=== PATIENT | male | born 1985 | race Caucasian/White ===

== ENCOUNTER 2017-04-05 13:07 | Emergency (ER) | payer SELFPAY ==
[~2017-04-05] VITALS: Wt 63.0 kg
[2017-04-05] MEDS ORDERED: AMOX1TAB10 PO (14:38)
[2017-04-05] MEDS ORDERED: HYDR-906 PO (14:38)
[2017-04-05] MEDS ORDERED: IBUP-1542 PO (14:38)
--- NOTE | 2017-04-05 14:48 | ERD ---
ER Documentation Chief Complaint Date/Time DATE: 04/05/17 TIME: 14:41 Chief Complaint RIGHT SIDE FACIAL SWELLING FOR 3 DAYS. NO TRAUMA. NO FEVERS HPI Patient is a 31-year-old male who presents to the emergency department for right -sided facial pain and swelling 3 days. Patient states he has difficulty with opening his mouth secondary to the pain. Patient denies any fevers or chills. Patient denies any trauma. Patient states approximately 6 weeks ago a part of his right lower molar metal filling came out. Patient states that the affected area is tender to touch. No active bleeding. Patient states he recently just moved here from [place] so he has not seen a dentist yet. Patient denies any nausea, vomiting, throat pain, ear pain, cough, chest pain or shortness of breath or loss consciousness. Patient denies taking any medication for his symptoms. ROS All systems reviewed and are negative except as per history of present illness. Medications Home Meds Active Scripts Hydrocodone/Acetaminophen ([place] 5-325 Tablet) 1 Each Tablet, 1 TAB PO Q6H Y for PAIN, #7 TAB Prov:DOLORES CHAPIN PA-C 04/05/17 Ibuprofen* (Motrin*) 600 Mg Tab, 600 MG PO Q6, #30 TAB Prov:DOLORES CHAPIN PA-C 04/05/17 Amoxicillin/Potassium Clav (Amox-Clav 875-125 mg Tablet) 875-125 mg Tab, 1 TAB PO BID for 10 Days, #20 TAB Prov:DOLORES CHAPIN PA-C 04/05/17 PMhx/Soc History of Surgery: No Anesthesia Reaction: No Hx Neurological Disorder: No Hx Respiratory Disorders: No Hx Cardiac Disorders: No Hx Psychiatric Problems: No Hx Miscellaneous Medical Probl: No Hx Alcohol Use: No Hx Substance Use: No Hx Tobacco Use: Yes Smoking Status: Current every day smoker Physical Exam Vitals Vital Signs Date Time Temp Pulse Resp B/P Pulse Ox O2 Delivery O2 Flow Rate FiO2 04/05/17 13:10 98.6 86 20 140/85 100 Physical Exam GENERAL: Well-developed, well-nourished male. Appears in no acute distress. Speaking in full sentences HEAD: Normocephalic, atraumatic. No deformities or ecchymosis. EYE: Pupils equal, round, and reactive to light. EOMs intact. No conjunctival erythema. No eye discharge. ENT: External ear without any masses or tenderness. Auditory canals clear bilaterally. TM visualized bilaterally, non-erythematous, non-bulging. Nasal mucosa pink with no discharge. Cold sore are noted on left lower lip. Oropharynx is pink without any tonsillar erythema or exudates. No uvula deviation. No kissing tonsils. No drooling. No trismus. Right lower molars with significant dental caries and fillings present. Right lower molars are tender to palpation. Right lower gum is tender to palpation with significant swelling, no active bleeding or discharge noted. NECK: Supple. No meningismus. Normal ROM of the neck. LUNG: Clear to auscultation bilaterally. No rhonchi, wheezing, rales or coarse breath sounds. HEART: Regular rate and rhythm. No murmurs, rubs or gallops. EXTREMITIES: Equal pulses bilaterally. No peripheral clubbing, cyanosis or edema. No unilateral leg swelling. NEUROLOGIC: Alert and oriented to person, place and time. Moving all four extremities. 5/5 strength in all extremities. Normal speech. Steady gait. SKIN: Normal color. Warm and dry. No rashes or lesions. Procedures/MDM MEDICAL DECISION MAKING: This is a 31-year-old female who presents to the ED for concerns of right lower jaw pain and tooth pain 3 days. Patient recently moved here from [place] and has not seen a dentist yet. Denies any fevers or chills. Vital signs were reviewed. Patient was afebrile. Patient was not hypoxic. The patient did not have trismus, muffled voice, uvula deviation, unilateral tonsillar swelling, or drooling. Given these findings, the patients presentation is most consistent with tooth pain. It is possible that patient may need a root canal given that his filling fell out and he has had exposure to the tooth root for some time now... I have a much lower clinical suspicion for epiglottitis, strep pharyngitis, peritonsillar abscess, retropharyngeal abscess, Ludwigs angina, bleeding dental socket, periodontal abscess, ulcerative gingivitis, mandible fracture, dental trauma PRESCRIPTIONS: Augmentin, ibuprofen, [place] DISCHARGE: At this time, patient is stable for discharge and outpatient management. I have instructed the patient to see a dentist today or tomorrow. Referral information for dentist provided. I have instructed the patient to promptly return to the ER at any time for any new or worsening symptoms including increased pain, fever, swelling, neck swelling, neck stiffness, drooling or difficulty breathing. The patient and/or family expressed understanding of and agreement with this plan. All questions were answered. Home care instructions were provided. Patients blood pressure was elevated (>120/80) but appears stable without evidence of hypertensive emergency, hypertensive urgency or end-organ failure. I had discussion with the patient about the risks of hypertension. I have advised the patient to follow up with his/her primary care physician for outpatient monitoring and treatment for hypertension in 2-3 days. I have instructed the patient to return to the ER for any new or worsening symptoms including chest pain, shortness of breath, headache, blurred vision, confusion, nausea, vomiting or LOC. Departure Diagnosis: Primary Impression: Pain due to dental caries Condition: Stable Patient Instructions: Dental Abscess Referrals: [facility] YOU HAVE RECEIVED A MEDICAL SCREENING EXAM AND THE RESULTS INDICATE THAT YOU DO NOT HAVE A CONDITION THAT REQUIRES URGENT TREATMENT IN THE EMERGENCY DEPARTMENT. FURTHER EVALUATION AND TREATMENT OF YOUR CONDITION CAN WAIT UNTIL YOU ARE SEEN IN YOUR DOCTORS OFFICE WITHIN THE NEXT 1-2 DAYS. IT IS YOUR RESPONSIBILITY TO MAKE AN APPOINTMENT FOR [facility] CARE. IF YOU HAVE A PRIMARY DOCTOR --you should call your primary doctor and schedule an appointment IF YOU DO NOT HAVE A PRIMARY DOCTOR YOU CAN CALL OUR PHYSICIAN REFERRAL HOTLINE AT IF YOU CAN NOT AFFORD TO SEE A PHYSICIAN YOU CAN CHOSE FROM THE FOLLOWING [facility] [address] [facility]. [facility] [address] [facility] [address] [facility] [facility] [address] [facility] [address] [facility]. [facility]. [address] [facility]. [facility] YOU HAVE RECEIVED A MEDICAL SCREENING EXAM AND THE RESULTS INDICATE THAT YOU DO NOT HAVE A CONDITION THAT REQUIRES URGENT TREATMENT IN THE EMERGENCY DEPARTMENT. FURTHER EVALUATION AND TREATMENT OF YOUR CONDITION CAN WAIT UNTIL YOU ARE SEEN IN YOUR DOCTORS OFFICE WITHIN THE NEXT 1-2 DAYS. IT IS YOUR RESPONSIBILITY TO MAKE AN APPOINTMENT FOR FOLOW-UP CARE. IF YOU HAVE A PRIMARY DOCTOR --you should call your primary doctor and schedule and appointment IF YOU DO NOT HAVE A PRIMARY DOCTOR YOU CAN CALL OUR PHYSICIAN REFERRAL HOTLINE AT . IF YOU CAN NOT AFFORD TO SEE A PHYSICIAN YOU CAN CHOSE FROM THE FOLLOWING [facility]: [facility] [id number] [place] [address] [facility] [address] [place] [address] [facility] [address] [place] [address] [facility] DENTIST ([facility] walk in clinic) Additional Instructions: Call your primary care doctor/DENTIST TOMORROW for an appointment during the next 1-2 days.See the doctor sooner or return here if your condition worsens before your appointment time. DOLORES CHAPIN PA-C Apr 05, 2017 14:48
== END 2017-04-05 15:09 | disposition home or self-care (01) ==
LOC: FTE 13:07
DX: K08.89 Other specified disorders of teeth and supporting structures (principal); F17.210 Nicotine dependence, cigarettes, uncomplicated
CPT/HCPCS: 99284